=== PATIENT | female | born 1960 | race Caucasian/White ===

== ENCOUNTER 2017-09-18 19:26 | Emergency (ER) | payer MEDICAID ==
[~2017-09-18] VITALS: Ht 170.2 cm; Wt 63.3 kg
[2017-09-18 19:27] VITALS: BP 141/87
[2017-09-18] MEDS ORDERED: HYDROcodone/APAP 5/325 TABLET PO STA (20:05)
[2017-09-18] MEDS ORDERED: LORazepam 1MG TABLET ONE (20:11)
[2017-09-18] MEDS ORDERED: HYDROcodone/APAP 5/325 TABLET ONE (20:11)
[2017-09-18] MEDS ORDERED: LORazepam 1MG TABLET PO ONE (20:30)
== END 2017-09-18 20:48 | disposition home or self-care (01) ==
LOC: ED 20:42
DX: S43.51XA Sprain of right acromioclavicular joint, initial encounter (principal); F17.210 Nicotine dependence, cigarettes, uncomplicated; X58.XXXA Exposure to other specified factors, initial encounter; Y93.89 Activity, other specified; Y92.89 Other specified places as the place of occurrence of the external cause; Y99.8 Other external cause status
CPT/HCPCS: 99284